=== PATIENT | female | born 1960 | race American Indian/Alaskan Native ===

== ENCOUNTER 2019-04-21 12:31 | Emergency (ER) | payer SELFPAY ==
--- NOTE | 2019-04-21 13:47 | Emergency Department Report ---
Blank Doc - Documentation Documentation: 58-year-old female that presents with left hand pain s/p fall. This initial assessment/diagnostic orders/clinical plan/treatment(s) is/are subject to change based on patient's health status, clinical progression and re- assessment by fellow clinical providers in the ED. Further treatment and workup at subsequent clinical providers discretion. Patient/guardians urged not to elope from the ED as their condition may be serious if not clinically assessed and managed. Initial orders include: 1- Patient sent to [facility] for further evaluation and treatment 2- xrays
[2019-04-21] MEDS ORDERED: IBUPROFEN 600 MG TAB PO ONE ×2 (13:50→13:52)
[2019-04-21 13:51] VITALS: BP 167/75
--- NOTE | 2019-04-21 14:22 | XRay Report ---
LEFT HAND, 3 VIEWS INDICATION: hand pain s/p fall. COMPARISON: None. IMPRESSION: Normal bone mineralization. A mildly displaced fracture is identified at the base of th e proximal phalanx of the left thumb. No calcified callus is identified consistent with an acute inju ry. There appears to be extension of fracture lines to the first metacarpophalangeal joint. The remai niranjan bony structures and joint spaces are intact. There are moderate osteoarthritic changes at the ba se of the first metacarpal and its articulation with the trapezium. Signer Name: Moy Cisneros Jr, MD Signed: 04/21/2019 2:18 PM Workstation Name: [id number]
--- NOTE | 2019-04-21 14:59 | Emergency Department Report ---
ED Upper Extremity Inj HPI - General Chief Complaint: Extremity Injury, Upper Stated Complaint: LFT HAND SWELLING Time Seen by Provider: 04/21/19 13:46 Source: patient Mode of arrival: Ambulatory Limitations: No Limitations - History of Present Illness Initial Comments: This is a 58-year-old -Citizen Of [place] female who presents to the emergency room with left thumb pain and swelling. Past medical history of hypertension, dementia, and Alzheimer's. Patient lives with her daughter and states she fell last night. Patient states she does not recall injury. She is unsure of how she fell. She reports swelling and pain to proximal left palm. Patient states she is unable to move finger. MD Complaint: Injury to:: left, finger -: Last night Other Extremity Injury: Fingers: Left (first proximal) Other Injuries: none Handedness: right Place: home Severity scale (0 -10): 10 Improves With: cold therapy Worsens With: movement of extremity Context: fall Associated Symptoms: denies other symptoms Treatments Prior to Arrival: cold therapy - Related Data Previous Rx's Medication Instructions Recorded Last Taken Type Acetaminophen/Codeine [Tylenol 1 tab PO Q6H PRN #10 tab 04/21/19 Unknown Rx /Codeine # 3 tab] Allergies Allergy/AdvReac Type Severity Reaction Status Date / Time No Known Allergies Allergy Unverified 04/21/19 12:37 ED Review of Systems ROS: Stated complaint: LFT HAND SWELLING Other details as noted in HPI Constitutional: denies: chills, fever Respiratory: denies: cough, shortness of breath, wheezing Cardiovascular: denies: chest pain, palpitations Gastrointestinal: denies: abdominal pain, nausea, diarrhea Musculoskeletal: joint swelling (left first finger), arthralgia (left first finger). denies: back pain Skin: denies: rash, lesions Neurological: denies: headache, weakness, paresthesias Psychiatric: denies: anxiety, depression ED Past Medical Hx - Past Medical History Previous Medical History?: Yes Hx Hypertension: Yes - Surgical History Past Surgical History?: Yes Additional Surgical History: Tubal ligation. tonsilectomy - Social History Smoking Status: Current Every Day Smoker Substance Use Type: Alcohol, Marijuana - Medications Home Medications: Home Medications Medication Instructions Recorded Confirmed Last Taken Type Acetaminophen/Codeine [Tylenol 1 tab PO Q6H PRN #10 tab 04/21/19 Unknown Rx /Codeine # 3 tab] ED Physical Exam - General Limitations: No Limitations General appearance: alert, in no apparent distress, obese - Respiratory Respiratory exam: Present: normal lung sounds bilaterally. Absent: respiratory distress - Cardiovascular Cardiovascular Exam: Present: regular rate, normal rhythm. Absent: systolic mu rmur, diastolic murmur, rubs, gallop - GI/Abdominal GI/Abdominal exam: Present: soft, normal bowel sounds - Expanded Upper Extremity Exam Left Shoulder Exam: Present: normal inspection, full ROM Upper Arm exam: Present: normal inspection, full ROM Elbow exam: Present: normal inspection, full ROM Forearm Wrist exam: Present: normal inspection, full ROM Hand Wrist exam: Present: tenderness (tenderness and swelling of first PIP), swelling, deformity, erythema. Absent: full ROM (decreased range of motion of first phalanx), abrasion, laceration, ecchymosis Neuro motor exam: Present: wrist extension intact, thumb opposition intact, thumb IP flexion intact, thumb adduction intact, fingers 2-5 abduction intact Neurosensory exam: Present: radial nerve intact, ulnar nerve intact, median nerve intact Vascular: Present: normal capillary refill (brisk), radial pulse (2+) - Neurological Exam Neurological exam: Present: alert, oriented X3 - Psychiatric Psychiatric exam: Present: normal affect, normal mood - Skin Skin exam: Present: warm, dry, intact, normal color. Absent: rash ED Course Vital Signs 04/21/19 04/21/19 13:47 13:53 Temperature 98.0 F Pulse Rate 89 Respiratory 18 18 Rate Blood Pressure 167/75 O2 Sat by Pulse 98 Oximetry ED Medical Decision Making - Radiology Data Radiology results: report reviewed LEFT HAND, 3 VIEWS INDICATION: hand pain s/p fall. COMPARISON: None. IMPRESSION: Normal bone mineralization. A mildly displaced fracture is identified at the base of the proximal phalanx of the left thumb. No calcified callus is identified consistent with an acute injury. There appears to be extension of fracture lines to the first metaca rpophalangeal joint. The remaining bony structures and joint spaces are intact. There are moderate osteoarthritic changes at the base of the first metacarpal and its articulation with the trapezium. - Medical Decision Making Patient was examined by me. Patient is nontoxic appearing and stable. Vitals are normal. Obtained x-ray of left hand. A mildly displaced fracture is identified at the base of the proximal phalanx of the left thumb. Given analgesics while in the ER. Patient informed of results. A glass thumb spica was applied to LUE. Referral to orthopedics for continued care. Start Tylenol No. 3. Follow up with PCP or return to the ER with worsening symptoms. Patient discharged home in stable condition. Critical care attestation.: If time is entered above; I have spent that time in minutes in the direct care of this critically ill patient, excluding procedure time. ED Disposition Clinical Impression: Pain of left thumb Fracture of finger, left Qualifiers: Encounter type: initial encounter Finger: thumb Fracture type: closed Phalanx: proximal Fracture alignment: displaced Qualified Code(s): S62.512A - Displaced fracture of proximal phalanx of left thumb, initial encounter for closed fracture Fall Qualifiers: Encounter type: initial encounter Qualified Code(s): W19.XXXA - Unspecified fall, initial encounter Disposition: TO HOME OR SELFCARE Is pt being admited?: No Condition: Stable Instructions: Finger Fracture (ED) Additional Instructions: Take pain medication every 6 hours as needed for pain. Follow-up with the orthopedic surgeon from the referral list below. Follow up with Primary Care Provider in 2-3 days. Prescriptions: Acetaminophen/Codeine [Tylenol /Codeine # 3 tab] 1 tab PO Q6H PRN #10 tab PRN Reason: Pain , Severe (7-10) Referrals: CAMPOS ARRIAGA MD [Staff Physician] - 3-5 Days [facility] [Provider Group] - 3-5 Days Time of Disposition: 15:19
== END 2019-04-21 15:30 | disposition home or self-care (01) ==
LOC: ED 12:31
DX: S62.512A Displaced fracture of proximal phalanx of left thumb, initial encounter for closed fracture (principal); I10 Essential (primary) hypertension; Z98.51 Tubal ligation status; Z90.89 Acquired absence of other organs; F10.10 Alcohol abuse, uncomplicated; F12.10 Cannabis abuse, uncomplicated; Z79.899 Other long term (current) drug therapy; W19.XXXA Unspecified fall, initial encounter; Y93.89 Activity, other specified; Y92.89 Other specified places as the place of occurrence of the external cause; Y99.8 Other external cause status

== ENCOUNTER 2020-01-03 00:04 | Emergency (ER) | payer MEDICARE ==
--- NOTE | 2020-01-03 01:22 | Emergency Department Report ---
- General Chief complaint: High BP Stated complaint: HYPERTENSIVE EPISODE Time Seen by Provider: 01/03/20 00:22 Source: patient, EMS Mode of arrival: Stretcher Limitations: No Limitations - History of Present Illness Initial comments: Chief complaint: "I just want my blood pressure down." HPI: This is a 59-year-old female with history of hypertension, tobacco dependence, and bipolar affective disorder who presents with generalized weakness. Before she went to sleep she just felt off. She just did not feel right. She has been without her medications Norvasc and Benicar. Her PCP is not offering primary care appointments during pandemic. She arrived via EMS. She denies headache, blurry vision, chest pain, shortness of breath, fever. She has been under a lot of stress. She has strained relationships with family members at home. She has recently experienced the deaths of both her aunt and godfather recently. She is very saddened by the fact that she is unable to bury her aunt who resided in [facility]. She endorses a depressed mood while grieving. She denies suicidal or homicidal ideation. Complaint: generalized weakness -: Gradual, This evening Severity: mild Consistency: constant Improves with: none Worsens with: none Context: depression (Grieving the deaths of 2 close relatives) Associated Symptoms: denies other symptoms - Related Data Previous Rx's Medication Instructions Recorded Last Taken Type Acetaminophen/Codeine [Tylenol 1 tab PO Q6H PRN #10 tab 04/21/19 Unknown Rx /Codeine # 3 tab] Olmesartan (Nf) [Benicar (Nf)] 20 mg PO QDAY #90 tablet 01/03/20 Unknown Rx amLODIPine 10 mg PO DAILY #90 tab 01/03/20 Unknown Rx Allergies Allergy/AdvReac Type Severity Reaction Status Date / Time No Known Allergies Allergy Unverified 04/21/19 12:37 ED Review of Systems ROS: Stated complaint: HYPERTENSIVE EPISODE Other details as noted in HPI Comment: All other systems reviewed and negative Constitutional: denies: fever Respiratory: denies: cough Cardiovascular: denies: chest pain Gastrointestinal: denies: abdominal pain, nausea, vomiting Neurological: denies: headache, weakness, numbness, paresthesias ED Past Medical Hx - Past Medical History Previous Medical History?: Yes Hx Hypertension: Yes Hx Psychiatric Treatment: Yes (bipolar) - Surgical History Past Surgical History?: Yes Additional Surgical History: Tubal ligation. tonsilectomy - Social History Smoking Status: Current Some Day Smoker Substance Use Type: Alcohol, Marijuana - Medications Home Medications: Home Medications Medication Instructions Recorded Confirmed Last Taken Type Acetaminophen/Codeine [Tylenol 1 tab PO Q6H PRN #10 tab 04/21/19 Unknown Rx /Codeine # 3 tab] Olmesartan (Nf) [Benicar (Nf)] 20 mg PO QDAY #90 tablet 01/03/20 Unknown Rx amLODIPine 10 mg PO DAILY #90 tab 01/03/20 Unknown Rx ED Physical Exam - General Limitations: No Limitations General appearance: alert, in no apparent distress, other (Patient appears well comfortable no acute distress) - Head Head exam: Present: atraumatic, normocephalic - Eye Eye exam: Present: normal appearance - ENT ENT exam: Present: mucous membranes moist - Neck Neck exam: Present: normal inspection, full ROM - Respiratory Respiratory exam: Present: normal lung sounds bilaterally. Absent: respiratory distress, wheezes, rales, rhonchi - Cardiovascular Cardiovascular Exam: Present: regular rate, normal rhythm, normal heart sounds. Absent: systolic murmur, diastolic murmur, rubs, gallop - GI/Abdominal GI/Abdominal exam: Present: soft, normal bowel sounds. Absent: distended, tenderness, guarding, rebound - Extremities Exam Extremities exam: Present: normal inspection - Neurological Exam Neurological exam: Present: alert, oriented X3 - Psychiatric Psychiatric exam: Present: normal affect, normal mood. Absent: homicidal ideation, suicidal ideation - Skin Skin exam: Present: warm, dry, intact, normal color. Absent: rash ED Course Vital Signs 01/03/20 01/03/20 00:16 00:18 Temperature 98.2 F Pulse Rate 94 H Respiratory 24 Rate Blood Pressure 224/105 O2 Sat by Pulse 96 Oximetry ED Medical Decision Making - Medical Decision Making 1. Hypertensive urgency: No evidence of endorgan damage according to history and physical. Further diagnostic testing not indicated at this time. Patient denies neurological symptoms or discomfort. I have prescribed 90 days of both Benicar and Norvasc. 2. Depression, grief reaction. Patient denies suicidal homicidal ideation. Critical care attestation.: If time is entered above; I have spent that time in minutes in the direct care of this critically ill patient, excluding procedure time. ED Disposition Clinical Impression: Hypertensive urgency, Grief reaction Disposition: DC-01 TO HOME OR SELFCARE Is pt being admited?: No Does the pt Need Aspirin: No Condition: Stable Instructions: Hypertension (ED) Prescriptions: amLODIPine 10 mg PO DAILY #90 tab Olmesartan (Nf) [Benicar (Nf)] 20 mg PO QDAY #90 tablet Referrals: CHRISTIN RAMON MD [Staff Physician] - as needed
[2020-01-03 02:04] VITALS: BP 175/72
[2020-01-03] MEDS ORDERED: cloNIDine 0.2 MG TAB PO PRN (02:30)
== END 2020-01-03 02:04 | disposition home or self-care (01) ==
LOC: ED 00:04
DX: I16.0 Hypertensive urgency (principal); F43.21 Adjustment disorder with depressed mood; F31.9 Bipolar disorder, unspecified; I10 Essential (primary) hypertension; F17.200 Nicotine dependence, unspecified, uncomplicated; F12.90 Cannabis use, unspecified, uncomplicated; Z90.49 Acquired absence of other specified parts of digestive tract; Z98.51 Tubal ligation status; Z79.899 Other long term (current) drug therapy